=== PATIENT | male | born 1980 | race Caucasian/White ===

== ENCOUNTER → 2019-01-08 | Outpatient (REF) | payer OTHER | LOC: M LAB LCGH 12:54 | PROVIDERS: ATTEND Surgery | DX: R10.12 Left upper quadrant pain (principal); R10.30 Lower abdominal pain, unspecified ==

== ENCOUNTER → 2024-01-31 | Outpatient (CLI) | payer BC | LOC: M PLAIMG 08:24 | PROVIDERS: ATTEND Internal Medicine Cardiovascular Disease | DX: R94.31 Abnormal electrocardiogram [ECG] [EKG] (principal); R00.2 Palpitations; R06.02 Shortness of breath; I27.20 Pulmonary hypertension, unspecified ==

== ENCOUNTER → 2024-01-31 | Outpatient (CLI) | payer BC | LOC: M PLAIMG 09:40 | PROVIDERS: ATTEND Internal Medicine Cardiovascular Disease | DX: R05.3 Chronic cough (principal) ==